=== PATIENT | male | born 1935 | race Caucasian/White ===

== ENCOUNTER 2017-11-03 11:01 | Day surgery (SDC) | payer MEDICARE ==
[~2017-11-03 11:01] MED LIST: ASPI81 PO; ATOR10 PO; LOSA25TA31 PO; PLAV75TA PO
[2017-11-03] MEDS ORDERED: LACTATED RINGER'S 1000 ML IV PRN (12:00)
[2017-11-03] MEDS ORDERED: METOPROLOL TARTRATE 25 MG TAB PO PRN (12:00)
[2017-11-03] MEDS ORDERED: SODIUM CHLORID 0.9% 500 ML IV PRN (12:00)
[2017-11-03] MEDS ORDERED: CHLORHEXIDINE GLUCONATE 2 % 1 PACK (2 CLOTHS) TOPICAL PRN (12:00)
[2017-11-03] MEDS ORDERED: POVIDONE IODINE 5% (ANTISEPSIS KIT) 4 APPLICATIONS EACH NARE PRN (12:00)
[2017-11-03] MEDS ORDERED: ASPI1TAB57 PO (12:13)
[2017-11-03] MEDS ORDERED: WARF-23 PO (12:13)
== END 2017-11-03 16:28 | disposition home or self-care (01) ==
LOC: HDOC 11:01 → HDIC 11:02 → HDOC 16:28
PROVIDERS: ATTEND Internal Medicine Interventional Cardiology
DX: R00.2 Palpitations (principal); I47.1 Supraventricular tachycardia; I35.0 Nonrheumatic aortic (valve) stenosis; I25.5 Ischemic cardiomyopathy
CPT/HCPCS: 93312; 93320; 93325

== ENCOUNTER 2017-11-28 10:50 | Day surgery (SDC) | payer MEDICARE ==
[~2017-11-28] VITALS: Ht 182.9 cm; Wt 101.4 kg
[~2017-11-28 10:50] MED LIST changes: +ASPI1TAB57 PO; -ASPI81 PO; -ATOR10 PO; -LOSA25TA31 PO; -PLAV75TA PO; +WARF-23 PO
[2017-11-28 11:22] VITALS: BP 156/85; PULSE 80; RESP 18; TEMP 97.8; O2SAT 90
[2017-11-28] MEDS ORDERED: ONDANSETRON HCL 4 MG/2 ML VIAL IV ONE (12:00)
[2017-11-28] MEDS ORDERED: ROCURONIUM INJ 50 MG/5 ML SYRINGE IV PUSH ONE (12:00)
[2017-11-28] MEDS ORDERED: LIDOCAINE HCL 1% PF 5 ML SYRINGE OTHER ONE (12:00)
[2017-11-28] MEDS ORDERED: PROPOFOL 200 MG/20 ML AMP IV ONE (12:00)
[2017-11-28] MEDS ORDERED: DEXAMETHASONE SOD PHOS 4 MG/ML VIAL IV ONE (12:00)
[2017-11-28] MEDS ORDERED: LORazepam 1 MG TAB SL SCH (12:00)
[2017-11-28] MEDS ORDERED: SODIUM CHLORID 0.9% 500 ML IV PRN (12:15)
[2017-11-28] MEDS ORDERED: METOPROLOL TARTRATE 25 MG TAB PO PRN (12:15)
[2017-11-28] MEDS ORDERED: POVIDONE IODINE 5% (ANTISEPSIS KIT) 4 APPLICATIONS EACH NARE PRN (12:15)
[2017-11-28] MEDS ORDERED: CHLORHEXIDINE GLUCONATE 2 % 1 PACK (2 CLOTHS) TOPICAL PRN (12:15)
[2017-11-28] MEDS ORDERED: LACTATED RINGER'S 1000 ML IV PRN (12:15)
[2017-11-28 12:24] LABS: INTERNATIONAL NORMALIZED RATIO 1.7 RATIO; PROTHROMBIN TIME - PATIENT 17.1 SEC (9.8-11.6)
[2017-11-28 12:39] LABS: ALKALINE PHOSPHATASE 69 U/L (45-117); TOTAL BILIRUBIN ADULT 0.6 MG/DL (0.2-1.0); TOTAL PROTEIN 7.3 GM/DL (6.4-8.2)
[2017-11-28 12:46] LABS: ALBUMIN 3.7 GM/DL (3.4-5.0); ALT (GPT) 28 U/L (12-78); AST (GOT) 27 U/L (15-37); BICARBONATE 27.3 MEQ/L (21.0-32.0); BLOOD UREA NITROGEN 26 MG/DL (7-18); CALCIUM 8.8 MG/DL (8.5-10.1); CHLORIDE 106 MEQ/L (98-107); CREATININE 1.13 MG/DL (0.60-1.30); GLOMERULAR FILTRATION RATE 62 ML/MIN (>89); GLUCOSE,RANDOM 132 MG/DL (74-106); SODIUM (NA) 139 MEQ/L (136-145)
[2017-11-28 14:04] LABS: AUTOMATED NEUTROPHIL # 6.4 TH/MM3 (1.8-7.7); BASOPHIL # 0.1 TH/MM3 (0-0.2); BASOPHIL % 1.1 % (0.0-2.0); EOSINOPHIL # 0.5 TH/MM3 (0-0.4); EOSINOPHIL % 4.4 % (0.0-4.0); HEMATOCRIT 40.4 % (39.0-51.0); LYMPH % 26.5 % (9.0-44.0); LYMPHOCYTE # 2.9 TH/MM3 (1.0-4.8); MEAN CELL VOLUME 92.8 FL (80.0-100.0); MEAN CORPUSCULAR HEMOGLOBIN 32.1 PG (27.0-34.0); MEAN CORPUSCULAR HGB CONC 34.6 % (32.0-36.0); MEAN PLATELET VOLUME 8.4 FL (7.0-11.0); MONO % 10.1 % (0.0-8.0); MONOCYTE # 1.1 TH/MM3 (0-0.9); NEUT % 57.9 % (16.0-70.0); PLATELET COUNT 213 TH/MM3 (150-450); RED BLOOD COUNT 4.36 MIL/MM3 (4.50-5.90); RED CELL DISTRIBUTION WIDTH 13.7 % (11.6-17.2)
[2017-11-28] MEDS: SODIUM CHLORID 0.9% 500 ML INJ 500 ML IV SCH (15:34)
[2017-11-28] MEDS ORDERED: HEPARIN-D5W 25,000 U/250 ML 250 ML ONE (15:36)
[2017-11-28] MEDS ORDERED: PROTAMINE SULFATE 50 MG/5 ML VIAL ONE (15:36)
[2017-11-28] MEDS ORDERED: HEPARIN SODIUM - IV 10,000 UNITS/10 ML VIAL ONE (15:37)
[2017-11-28] MEDS ORDERED: HEPARIN-NS/PF FLUSH BAG 2,000 ML IV FLUSH ONE (15:49)
[2017-11-28] MEDS ORDERED: LEVOFLOXACIN 500 MG PREMIX INJ 100 ML IV ONE (15:49)
--- NOTE | 2017-11-28 18:09 | PD.CARD ---
Atrial Fibrillation Cryo Study PROCEDURE DATE: Nov 28, 2017 PROCEDURE PERFORMED Electrophysiology study, CS cannulation, 3-D mapping, transeptal approach, right and left heart catheterization, cryoablation of atrial fibrillation, pulmonary vein isolation, posterior ablation, anterior ablation, repeat electrophysiology study on Isuprel infusion, intracardiac echo. Very complex case. INDICATIONS FOR PROCEDURE Mr. Mora is a 81-year-old male with atrial fibrillation, on multiple medications, on anticoagulation, referred for electrophysiology study and ablation. The risks, the nature and the benefit of the procedure are clearly stated to him. The risks include pneumothorax, cardiac perforation, stroke, need for open heart surgery and even . The patient understood and agreed to proceed. PROCEDURE As written informed consent was obtained prior to esophageal echo, the patient was kept on the table where he was prepped and draped in the usual sterile fashion. Conscious sedation was initiated and throughout the procedure by the anesthesiologist. Once sedation was verified, the right and left inguinal area was anesthetized with 2% Xylocaine. Using modified Seldinger technique, the left femoral vein was cannulated on three occasions and three guidewires were advanced over the wire, one 6, one 7, and one 10-Danish Hemaquet were advanced. Then the left femoral artery was done on one occasion, one guidewire was advanced over the wire. A 4-Danish Hemaquet was advanced. Then the right femoral vein was cannulated on one occasion and one guidewire was advanced over the wire. An 8-Danish Hemaquet was advanced. Then under fluoroscopic guidance through the 6 and 7-Danish Hemaquet, two 5- Danish Amy curved quadripolar electrophysiology catheters were advanced and positioned on the His as well as coronary sinus. The patient was in sinus rhythm. Basic interval was measured. They were all within normal limits. Then through the 10-Danish Hemaquet, a [employer] AcuNav intracardiac echo catheter was advanced and placed at the right atrium. Multiple views were obtained. There was no pericardial effusion. Pulmonary vein was seen. The atrial septum was visualized. Then the 8-Danish Hemaquet in the right femoral vein was exchanged for an Agilis transseptal sheath that was placed all the way to the superior vena cava. Through this sheath a [place] needle was advanced. Then the sheath, the dilator and the needle were pulled back progressively until foci engaged. Once the needle was advanced, RF was delivered for 2 seconds. I was able to cross into the left atrium. Once the needle was crossed, the dilator was advanced. Once the dilator was crossed, the sheath was advanced. Once the sheath crossed , the dilator and needle were removed. An intracardiac echo showed the sheath in good position. The patient already received 10,000 units of heparin. The goal is to get an ACT around 360 during the ablation. Through the sheath a 0.035 wire was advanced. I did exchange the Agilis sheath for a [employer] flex sheath. I decided to use a 28mm balloon. The balloon was advanced over the Acheive circumferential mapping catheter. Using EDGAR mapping, a 3 D mapping of the left atrium was obtained. First I did engage the left superior vein. The balloon was inflated, complete occlusion obtained. CryoEnergy was delivered for 3 and 3 minutes. Temperature reached -48. Then I did engage the left inferior vein, occlusion obtained. Venography showed complete occlusion and CryoEnergy was delivered for 3 and 2.5 minutes. Temperature was around -52. Then the right inferior was engaged, complete occlusion obtained. Temperature reach -48 for 3 and 3 minutes. Then the right superior was engaged. Before CryoEnergy of the right veins, the His catheter was placed at the left and the right subclavian. Phrenic nerve pacing was performed. There was diaphragmatic stimulation. That is going to be used for phrenic nerve monitoring during cryoablation. I did cryoablate the right superior vein. There was no loss of phrenic nerve movement, diaphragmatic movement. Phrenic nerve was intact. The temperature dropped to -46 for 3 and 3 minutes. At that point I removed the balloon. The circumferential catheter was advanced into the veins. Then the circumferential catheter was advanced into the veins. Pacing from the vein showed no conduction to the atrium. Pacing from the atrium showed no conduction to the veins. The patient at this point received Isuprel infusion for around 15 minutes at 20mcg. No tachyarrhythmia was induced, no conduction resumed. Post-Isuprel no conduction resumed either. At that point the procedure was complete. All catheters were removed, the transeptal sheath was exchanged for a 12-Danish Hemaquet. Intracardiac echo showed pericardial effusion, still good flow in the pulmonary vein. No incident reported. The patient tolerated the procedure. Blood loss minimal. 1. Electrocardiogram: At baseline the patient was in sinus. Postprocedure the patient in sinus. 2. Basic Interval: Base cycle length was around 760 milliseconds.AH at 124 and HV at 80ms. 3. Tachyarrhythmia: Atrial fibrillation was mapped and ablated. Ablation was successful. CONCLUSION Successful electrophysiology study, mapping and cryoablation of atrial fibrillation, pulmonary vein isolation, posterior and anterior wall ablation, repeat electrophysiology study on Isuprel infusion. COMMENT AND RECOMMENDATIONS The patient is going to be transferred to the telemetry unit, will be observed, and when stable can be discharged home. Libia Murcia MD Nov 28, 2017 18:09
[2017-11-28] MEDS ORDERED: BACITRACIN OINT 0.9 GM PKT TOP ONE (18:15)
[2017-11-28] MEDS ORDERED: SODIUM CHLOR 0.9% 250 ML INJ 250 ML IV PRN (18:15)
[2017-11-28] MEDS ORDERED: LIDOCAINE HCL 1% 50 ML VIAL INFIL PRN (18:15)
[2017-11-28] MEDS ORDERED: oxyCODONE/ACETAMINOPHEN 5 MG/325 MG TAB PO PRN ×2 (18:15)
[2017-11-28] MEDS ORDERED: LORazepam 2 MG/ML VIAL IV PUSH PRN (18:15)
[2017-11-28] MEDS ORDERED: ONDANSETRON HCL 4 MG/2 ML VIAL IV PUSH PRN (18:15)
[2017-11-28] MEDS ORDERED: ATROPINE SULFATE 1 MG/ML VIAL IV PUSH PRN (18:15)
--- NOTE | 2017-11-28 19:07 | CATHPROC ---
Patient Name: NEDA RIZO Study #: [id number] Initial MD: Libia Murcia Date of : 1935 Study Date: 11/28/2017 Cardiac Catheterization Report 11/28/2017 7:07:40 PM Financial #: [id number] 1 of 10 Patient Name: NEDA RIZO Study #: [id number] Initial MD: Libia Murcia Date of : 1935 Study Date: 11/28/2017 Entire Case Report Patient Information Patient Name NEDA RIZO Date of 1935 Age 81 years Financial # [id number] Gender M AlternateID Lab Number 2 Room Number DC07 Height (in) 72.0 Height (cm) 182.9 BSA 2.23 Weight (lbs) 223.1 Weight (kg) 101.4 Patient Address/Phone Number Home Address [facility] Home Phone Number [facility] [phone] Study Information Study Number Admission Scheduled Start Study Start [id number] Nov 28 2017 10:50AM 11/28/2017 Nov 28 2017 2:31PM [place] Service Electrophysiology Study Admit Source Facility Department Other [facility] [employer] Manager Physician and Clinical Staff Initial Libia Landon Maths Tutor Esvin Cardoso,RT(R) Maths Tutor Bertha Huerta,APPLICATION SUPPORT CONSULTANT Other Anesthesia, ASSET MANAGER Recorder Liliya Goodson RN Scrub Yuni ChavezRT(R) TECH2 11/28/2017 7:07:40 PM Financial #: [id number] 2 of 10 Patient Name: NEDA RIZO Study #: [id number] Initial MD: Libia Murcia Date of : 1935 Study Date: 11/28/2017 Procedures Performed Procedure Location (Site) Vessel Name CRYO Ablation LIPV LIPV CRYO Ablation LSPV LSPV CRYO Ablation RIPV RIPV CRYO Ablation RSPV RSPV ICE CATHETER INSERT RA Atruim Venogram LIPV LIPV Venogram LSPV LSPV Venogram RIPV RIPV Venogram RSPV RSPV Equipment Time Customs And Immigration Officer Description Size Mfg Part Number Used/Scraped COPILOT VALVE, BLEEDBACK [id number] 14:34 [employer] Used CONTROL *[id number] TRANSDUCER, TRUWAVE [id number] 14:34 CARLOS MERCHANT * Used W/STOCKCOCK *[id number] NEEDLE, TRANSSEPTAL NR 98 [id number] 14:34 [facility] Used C1 *[id number] COVER, TRANSDUCER CABLE 612-113 14:34 [employer] Used ACUNAV *0296418 14:34 CONMED LEADWIRE, DEFIBRILLATION PAD 2001M-PC Used SHEATH SET, FR12 CHECK-CLYDE RCF-12.0-38-J 14:34 COOK/PACER FR12 Used 13CM *[id number] 14:34 CORDIS/PACER SHEATH, FR10 ROHIT 11CM FR 10 Used *[id number] [id number] 14:34 MED[employer] PACK, CCL CUSTOM * Used *5302711 14:34 [employer] PACER LI, LIMB * 2530 *5442445 Used PSI-4F-11- 14:34 NavigatorMD MEDICAL SHEATH, FR4.5 PRELUDE 11CM FR 4.5 Used 035ACT [id number] 14:34 NavigatorMD MEDICAL WIRE, 3MMJ .035 180CM 180CM Used *4577064 [id number] 14:34 NAMIC MANIFOLD, 4 PORT * Used *8783717 [id number] 14:34 NAMIC TUBING, HIGH PRESSURE 48" 48" Used *5757540 47913979 14:34 NAMIC TUBING, HIGH PRESSURE 48" 48" Used *3348934 TUBING, PRESSURE INJECTION 53230575 14:34 NAMIC PACER 72" Used 72" *9903980 16:15 NYCOMED OMNIPAQUE, 300 MG, 150ML 150ML [id number] Used [id number] 14:34 MAYS MEDICAL BLANKET,WARM AIR CCL * Used *[id number] 11/28/2017 7:07:40 PM Financial #: [id number] Patient Name: NEDA RIZO Study #: [id number] Initial MD: Libia Murcia Date of : 1935 Study Date: 11/28/2017 569667 14:34 [facility] CATHETER, JSN, QUAD FR 5 Used *[id number] 537490 14:34 [facility] CATHETER, JSN, QUAD FR 5 Used *9710114 AD7981 14:34 [facility] [employer] ELECTRODE KIT, IMELDA X SURFACE * Used *6361480 128951 14:34 [facility] [employer] SHEATH, EPS, FR6 FAST CATH FR 6 Used *1441145 14:34 [facility] [employer] SHEATH, EPS, FR7 FAST CATH FR 7 [id number] Used 025147 14:34 [facility] [employer] SHEATH, EPS, FR8 FAST CATH FR 8 Used *3782858 SHEATH, FR8.5 STEERABLE SM 16:41 [facility] [employer] MEDICAL 71CM 403471 Used 71CM CATHETER, ACUNAV FR10 ICE [id number] 16:36 ANSLEY FR 10 Used (ANSLEY) *[id number] TER[employer]O MEDICAL 16:11 SHEATH, FR10 TURUMO FR [id number] [facility] PAD, ELECTROSURGICAL 14:34 * [id number] *5569058 Used SURGICAL GROUNDING (BLUE) BALLOON, ARCTIC FRONT 6ST765 16:57 [employer] Used ADVANCE 28MM *[id number] CATHETER, ACHEIVE MAPPING 2ACH20 16:50 [employer] 20MM Used 20MM *8556066 SHEATH, FR12 FLEXCATH 16:43 VIT[employer]RON [employer] FR 12 [id number] Used STEERABLE Equipment Model, Serial, Lot Number and Expiration Data Description Model Number Serial Number Lot Number Expiration Date CATHETER, ACHEIVE MAPPING [id number] 01-18-2019 20MM Insurance Information Insurance Payor Medicare Third Green Party Third Green Party Number MEDICARE A B MCRAB History: Allergies Allergy Reaction No Known Allergies History: Risk Factors Hypertension Dyslipidemia Previous NV Yes Yes Yes Prior PCI Yes Diabetes Yes 11/28/2017 7:07:40 PM Financial #: [id number] Patient Name: NEDA RIZO Study #: [id number] Initial MD: Libia Murcia Date of : 1935 Study Date: 8 Labs Hgb (g/dl) Hct (%) RBC (MIL/MM3) WBC (l/cumm) Platelets (thousands) 11.60-17.00 35.00-51.00 4.00-5.90 4.00-11.00 150.00-450.00 14.0 40 4.4 11 213 Glucose (mg/dl) BUN (mg/dl) Creatinine (mg/dl) BUN:Creatinine (1:x) 74.00-106.00 7.00-18.00 0.50-1.30 10.00-20.00 132 26 1.1 23.6 Na (meq/l) K (meq/l) 136.00-145.00 3.50-5.10 139 4.2 INR (PTT:PT) 0.90-1.10 1.7 Medication Medication Total Dose (Bolus/Oral) Medication Total Dosage/Unit 1% XYLOCAINE 40 mL HEPARIN 50927 units PROTAMINE 40 mg Medications (Bolus/Oral) Medication Time Given Dosage/Unit Administered By Reason 1% XYLOCAINE 11/28/2017 4:30:02 PM 20 mL Libia Murcia 20 mL 1% XYLOCAINE given in lab by Libia Murcia in Left Groin via Subcutaneous. 1% XYLOCAINE 11/28/2017 4:34:43 PM 20 mL Libia Murcia 20 mL 1% XYLOCAINE given in lab by Libia Murcia in Right Groin via Subcutaneous. HEPARIN 11/28/2017 4:40:52 PM 96328 units Anesthesia, ASSET MANAGER As per physicians v erbal order 29263 units HEPARIN given in lab by Anesthesia, ASSET MANAGER via Peripheral IV. Ordered by Libia Murcia. [place] son: As per physicians verbal order. PROTAMINE 11/28/2017 6:01:10 PM 40 mg Anesthesia, ASSET MANAGER As per physicians iam bal order 40 mg PROTAMINE given in lab by Anesthesia, ASSET MANAGER via Peripheral IV. Ordered by Libia Murcia. Reason: As per physicians verbal order. Medication (Drip) Medication Time Given Dosage/Unit Concentration/Unit Diluent (ml) Solution ISUPREL 11/28/2017 5:46:29 PM 20 mcg/min 1 mg 250 NaCl .9 20 mcg/min ISUPREL given in lab by Anesthesia, ASSET MANAGER via Peripheral IV. Pump/Drip Flow = 300 ml/hr usi ng NaCl .9 with a concentration of 1 mg in 250 ml. Ordered by Libia Murcia. Reason: As per physicians verbal order. 11/28/2017 7:07:40 PM Financial #: [id number] 5 of 10 Patient Name: NEDA RIZO Study #: [id number] Initial MD: Libia Murcia Date of : 1935 Study Date: 11/28/2017 Initial Case Assessment Cardiovascular HR Rhythm NIBP Chest Pain 80 sr 183/100 0 Edema Present Skin color Skin None Normal Warm Circulatory - Right Pulses Dorsalis Pedis 2 Scale (0,1,2,3,4,d) Circulatory - Left Pulses Dorsalis Pedis 2 Scale (0,1,2,3,4,d) Circulatory - Lower Extremities Color Lower Right Color Lower Left Normal Normal Neurological State Oriented to time-place- Alert Moves all extremities person Respiration - General Respiration Rate SpO2 (%) (B/min) 20 99 11/28/2017 7:07:40 PM Financial #: [id number] 6 of 10 Patient Name: NEDA RIZO Study #: [id number] Initial MD: Libia Murcia Date of : 1935 Study Date: 11/28/2017 Final Case Assessment Cardiovascular HR Rhythm NIBP Chest Pain 68 sr 135/70 0 Edema Present Skin color Skin None Normal Warm Dry Circulatory - Right Pulses Dorsalis Pedis Femoral 2 2 Scale (0,1,2,3,4,d) Circulatory - Left Pulses Dorsalis Pedis Femoral 2 2 Scale (0,1,2,3,4,d) Neurological State Oriented to time-place- Alert Moves all extremities person Respiration - General Respiration Rate SpO2 (%) (B/min) 18 98 Chronological Log Time Study Chronological Log 15:34:28 Patient arrived via Bed. 15:34:29 Patient Name, D.O.B, / Armband Verified By R.N. 15:34:30 Consent signed by the physician and the patient and verified by the [employer]essen Store Manager staff. 15:34:30 Pre-op and post- op instructions given; patient acknowledges understanding of instructions. 15:34:31 Verbal Stimulation=2 Physical Stimulation=2 Airway=2 Respiration=2 TOTAL=8. (0=absent, 1=li mited, 2=present) 15:34:32 Anesthesia at bedside. Assumes care of patient. Jay 15:34:37 Patient has been NPO for More than 6Hrs. 15:34:38 Skin Breakdown- none per pt 15:34:51 Patient Warmer Placed on the Table. 15:34:52 Disposable Defibrillator Pads Placed On Patient. 15:34:52 Ramandeep Prominences Protected 15:34:54 A # 20 IV was noted in the Hand (left). Grade = 0 0.9ns kvo 11/28/2017 7:07:40 PM Financial #: [id number] 7 of 10 Patient Name: NEDA RIZO Study #: [id number] Initial MD: Libia Murcia Date of : 1935 Study Date: 11/28/2017 15:34:55 A # 20 IV was noted in the Antecubital (right). Grade = 0 0.9ns kvo 15:35:43 History and physical on the chart. Assessment: Initial Case, HR=80 BPM, Rhythm=sr, YLYM=491/100 mmhg, Chest Pain=0, Edema=None, Co se=Normal, Skin = Warm Right Pulses: Roque Ped=2 Left Pulses: Roque Ped=2 15:52:18 Lower Right Extremities: Color=Normal Lower Left Extremities: Color=Normal Neurological: State=Alert, Ox3, PARKS Respiration: Resp=20 B/min, SpO2=99 % 15:52:58 Table restraints applied according to hospital policy 15:55:27 Anesthesiologist present for intubation. 14 fr logan inserted w/o difficulty. Clear yellow urine obtained. 15:55:32 Reference ECG taken 16:07:25 Bilateral groins prepped with 2% chlorhexidine, and draped after a 3 minute waiting time. 16:12:48 Pressure channel 2 zeroed. 16:15:17 MD paged 16:18:17 MD responded 16:22:30 MD arrived. Time Out. Correct patient, procedure, procedure equipment, site and side verified with physicia n present. Time 16:26:00 concurred by MD, individual staff and ASSET MANAGER. Time Out #2 - Consents verified, patient in correct position, all results are labled and displa yed, safety precautions 16:26:28 taken, antibiotics administered. Time out concurred by MD, individual staff and ASSET MANAGER in procedu re 16:26:49 Case Start 16:26:52 Hank in progress. 16:29:38 Hank complete. 16:30:02 20 mL 1% XYLOCAINE given in lab by Libia Murcia in Left Groin via Subcutaneous. 16:30:41 Vascular access was obtained in the Fem Vein (left). 16:30:48 Vascular access was obtained in the Fem Vein (left). 16:30:56 Vascular access was obtained in the Fem Vein (left). 16:31:02 Vascular access was obtained in the Fem Art (left). A SHEATH, FR4.5 PRELUDE 11CM FR 4.5 was advanced into the Fem Art (left) using the Modified Florina timbo technique. 16:31:13 0.9ns pressure bag connected. 16:32:29 A SHEATH, EPS, FR6 FAST CATH FR 6 was advanced into the Fem Vein (left) using the Modified Seldinger technique. 16:32:40 A SHEATH, EPS, FR7 FAST CATH FR 7 was advanced into the Fem Vein (left) using the Modified Seldinger technique. 16:32:43 A SHEATH, FR10 ROHIT 11CM FR 10 was advanced into the Fem Vein (left) using the Modified S eldinger technique. 16:34:43 20 mL 1% XYLOCAINE given in lab by Libia Murcia in Right Groin via Subcutaneous. 16:34:50 Vascular access was obtained in the Fem Vein (right). 16:34:56 A SHEATH, EPS, FR8 FAST CATH FR 8 was advanced into the Fem Art (right) using the Modified Seldinger technique. 16:36:13 CATHETER, ACUNAV FR10 ICE (ANSLEY) FR 10 Was Postioned. A CATHETER, JSN, QUAD FR 5 was advanced vis Fem Vein (left) and placed in the HIS. Placement wa s visually 16:38:39 confirmed under fluoroscopy. 11/28/2017 7:07:40 PM Financial #: [id number] Patient Name: NEDA RIZO Study #: [id number] Initial MD: Libia Murcia Date of : 1935 Study Date: 11/28/2017 A CATHETER, JSN, QUAD FR 5 was advanced vis Fem Vein (left) and placed in the CS. Placement was visually 16:38:56 confirmed under fluoroscopy. A SHEATH, FR8.5 STEERABLE SM 71CM 71CM was exchanged in the Fem Art (right). This was necessary in order for 16:39:57 catheter support. 16:40:18 [place] [address] units HEPARIN given in lab by Anesthesia, ASSET MANAGER via Peripheral IV. Ordered by Nancy Murcia Reason: As per 16:40:52 physicians verbal order. 16:41:18 A eps was advanced to the right atrium and passed through the septal wall to the left atriu m. 16:41:21 [place] out A SHEATH, FR12 FLEXCATH STEERABLE FR 12 was exchanged in the Fem Art (right). This was necessar y in order for 16:42:55 catheter support. A CATHETER, ACHEIVE MAPPING 20MM 20MM was advanced vis Fem Vein (right) and placed in the LA. P lacement was 16:44:21 visually confirmed under fluoroscopy. 16:46:18 Activated Clotting Time Drawn 16:53:48 ACT (Normal Range 90-180) = 361 16:56:00 A BALLOON, ARCTIC FRONT ADVANCE 28MM was inserted over wire via the LSPV. 16:56:17 Cryo Ablation of the LSPV with a BALLOON, ARCTIC FRONT ADVANCE 28MM. 1st 16:59:10 The LSPV was manually injected with 5 cc's of contrast. OMNIPAQUE, 300 MG, 150ML 150ML used . 17:00:39 Cryo Ablation of the LSPV with a BALLOON, ARCTIC FRONT ADVANCE 28MM. 2nd 17:04:53 Cryo Ablation of the LIPV with a BALLOON, ARCTIC FRONT ADVANCE 28MM. 1st 17:05:11 The LIPV was manually injected with 5 cc's of contrast. OMNIPAQUE, 300 MG, 150ML 150ML used . 17:09:46 Cryo Ablation of the LIPV with a BALLOON, ARCTIC FRONT ADVANCE 28MM. 2nd 17:10:14 The LIPV was manually injected with 5 cc's of contrast. OMNIPAQUE, 300 MG, 150ML 150ML used . 17:16:00 The RIPV was manually injected with 5 cc's of contrast. OMNIPAQUE, 300 MG, 150ML 150ML used . 17:16:19 Cryo Ablation of the RIPV with a BALLOON, ARCTIC FRONT ADVANCE 28MM. 1st 17:16:43 EPS in progress. 17:19:45 Activated Clotting Time Drawn 17:21:12 The RIPV was manually injected with 5 cc's of contrast. OMNIPAQUE, 300 MG, 150ML 150ML used . 17:21:23 Cryo Ablation of the RIPV with a BALLOON, ARCTIC FRONT ADVANCE 28MM. 1st 17:23:51 ACT (Normal Range 90-180) = 357 17:24:40 Cryo Ablation of the RIPV with a BALLOON, ARCTIC FRONT ADVANCE 28MM. 2nd 17:28:56 The RSPV was manually injected with 5 cc's of contrast. OMNIPAQUE, 300 MG, 150ML 150ML used . 17:29:19 Cryo Ablation of the RSPV with a BALLOON, ARCTIC FRONT ADVANCE 28MM. 17:37:08 Cryo Ablation of the RSPV with a BALLOON, ARCTIC FRONT ADVANCE 28MM. 2nd 20 mcg/min ISUPREL given in lab by Anesthesia, ASSET MANAGER via Peripheral IV. Pump/Drip Flow = 300 ml/ hr using NaCl .9 17:46:29 with a concentration of 1 mg in 250 ml. Ordered by Libia Murcia. Reason: As per physicians iam bal order. 17:58:19 Isuprel off 17:58:30 All catheter(s) removed without difficulty A SHEATH SET, FR12 CHECK-CLYDE 13CM FR12 was exchanged in the Fem Vein (right). This was necessar y in order to 17:59:46 minimize site leakage. 18:00:03 Heparin off 11/28/2017 7:07:40 PM Financial #: [id number] Patient Name: NEDA RIZO Study #: [id number] Initial MD: Libia Murcia Date of : 1935 Study Date: 11/28/2017 18:00:46 Case End 40 mg PROTAMINE given in lab by Anesthesia, ASSET MANAGER via Peripheral IV. Ordered by Libia Murcia. Reason: As per 18:01:10 physicians verbal order. 18:05:19 Patient extubated without issue 18:10:17 Activated Clotting Time Drawn 18:12:55 Defibrillator and ground pads removed. Skin intact. 18:15:27 ACT (Normal Range 90-180) = 137 18:16:25 12Fr venous sheath pulled at 16:16 by Jaron DUENAS, and 4fr arterey pulled by Sena LIRA 18:27:47 6fr, 7fr, 10fr venous sheaths pulled by Bertha LIRA Assessment: Final Case, HR=68 BPM, Rhythm=sr, EMXG=541/70 mmhg, Chest Pain=0, Edema=None, [place] r=Normal, Skin = Warm, Dry Right Pulses: Roque Ped=2, Femoral=2 18:34:44 Left Pulses: Roque Ped=2, Femoral=2 Neurological: State=Alert, Ox3, PARKS Respiration: Resp=18 B/min, SpO2=98 % 18:35:43 No case complications noted. 18:36:38 PACU called. Spoke to desk cler. 18:37:08 Bedside Report will be given. 18:39:43 Sterile dressing applied to r groin site 18:45:58 Sterile dressing applied to left groin site 18:50:19 Patient moved to stretcher. sites wnl End Study - Contrast Media Used In Study Contrast Total Opened (mL) Total Used (mL) Total Wasted (mL) Omnipaque 150 25 125 End Study - Maximum Contrast Load Max Contrast Load (mL) 461.0 End Study - Radiation Exposure Fluoro Time (minutes) 10.5 End Study - Patient Disposition Complications Transferred To Interventional Outcome No Telemetry Bed successful 11/28/2017 7:07:40 PM Financial #: [id number]
[2017-11-28] MEDS ORDERED: DO NOT ADM ANY ANTICOAGULANT DRUGS PRN (19:10)
[2017-11-28 21:53] VITALS: BP 133/68; PULSE 71; RESP 17; TEMP 98; O2SAT 96
[2017-11-28 22:06] VITALS: PULSE 70
[2017-11-28] MEDS: APIXABAN 5 MG TABLET PO SCH (22:10)
[2017-11-28 23:00] VITALS: BP 123/63; PULSE 69; PULSE 77; RESP 17; TEMP 97.6; O2SAT 96
[2017-11-29] VITALS (11 sets, daily range): BP systolic 114–147; BP diastolic 62–65; PULSE 53–70; RESP 17–19; TEMP 97.6–98.2; O2SAT 96–97
[2017-11-29] MEDS: SODIUM CHLORID 0.9% 500 ML INJ 500 ML IV SCH (03:28)
[2017-11-29 04:39] LABS: HEMATOCRIT 37.4 % (39.0-51.0); HEMOGLOBIN 13.2 GM/DL (13.0-17.0); MEAN CELL VOLUME 92.8 FL (80.0-100.0); MEAN CORPUSCULAR HEMOGLOBIN 32.7 PG (27.0-34.0); MEAN CORPUSCULAR HGB CONC 35.2 % (32.0-36.0); MEAN PLATELET VOLUME 8.3 FL (7.0-11.0); PLATELET COUNT 179 TH/MM3 (150-450); RED BLOOD COUNT 4.03 MIL/MM3 (4.50-5.90); RED CELL DISTRIBUTION WIDTH 13.5 % (11.6-17.2)
[2017-11-29 04:53] LABS: INTERNATIONAL NORMALIZED RATIO 1.7 RATIO; PROTHROMBIN TIME - PATIENT 17.1 SEC (9.8-11.6)
[2017-11-29 05:03] LABS: BICARBONATE 24.3 MEQ/L (21.0-32.0); CALCIUM 8.2 MG/DL (8.5-10.1); CREATININE 0.94 MG/DL (0.60-1.30)
--- NOTE | 2017-11-29 08:02 | EKG ---
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
--- NOTE | 2017-11-29 08:18 | PD.CARD.PN ---
Subjective Subjective Remarks Feels okay Objective Medications Current Medications Medications (Trade) Dose Ordered Sig/Anjali Route Start Time Stop Time Status Last Admin Sodium Chloride 500 ml @ 30 mls/hr [id number] IV 11/28/17 12:00 11/28/17 15:34 (Ativan) 1 mg MANAGER MASS SL 11/28/17 12:00 12/01/17 11:59 Lactated Ringer's 1,000 ml @ 30 mls/hr Q24H PRN IV 11/28/17 12:15 12/01/17 12:14 Sodium Chloride 500 ml @ 30 mls/hr [id number] PRN IV 11/28/17 12:15 12/01/17 12:14 (Lopressor) 25 mg MANAGER MASS PRN PO 11/28/17 12:15 12/01/17 12:14 (Betadine 5% Antisepsis Kit) 1 applic MANAGER MASS PRN EACH NARE 11/28/17 12:15 12/01/17 12:14 (Chlorhexidine 2% Cloth) 3 pack MANAGER MASS PRN TOPICAL 11/28/17 12:15 12/01/17 12:14 (Percocet 5-325 Mg) 1 tab Q4H PRN PO 11/28/17 18:15 (Percocet 5-325 Mg) 2 tab Q4H PRN PO 11/28/17 18:15 (Ativan Inj) 0.5 mg UNSCH PRN IV PUSH 11/28/17 18:15 11/29/17 18:14 (Atropine Inj) 0.5 mg UNSCH PRN IV PUSH 11/28/17 18:15 Sodium Chloride 250 ml @ 500 mls/hr ONCE PRN IV 11/28/17 18:15 11/29/17 18:14 (Zofran Inj) 4 mg Q4H PRN IV PUSH 11/28/17 18:15 (Xylocaine 1% Inj (50 ml)) 10 ml UNSCH PRN INFIL 11/28/17 18:15 11/29/17 18:14 (Eliquis) 5 mg BID PO 11/28/17 21:00 11/28/17 22:10 Miscellaneous Information ALL NURSING DEPARTME... UNSCH PRN .XX 11/28/17 19:10 11/29/17 19:09 Vital Signs / I&O Vital Signs Date Time Temp Pulse Resp B/P (MAP) Pulse Ox O2 Delivery O2 Flow Rate FiO2 11/29/17 07:43 98.2 70 19 147/65 (92) 97 11/29/17 06:01 53 11/29/17 05:00 56 11/29/17 04:00 63 11/29/17 03:00 97.6 70 17 114/62 (79) 96 11/29/17 03:00 59 11/29/17 02:00 58 11/29/17 01:00 60 11/29/17 00:00 60 11/28/17 23:00 69 11/28/17 23:00 97.6 77 17 123/63 (83) 96 11/28/17 22:06 70 11/28/17 21:53 98.0 71 17 133/68 (89) 96 11/28/17 21:19 97.6 66 25 120/68 (85) 97 Room Air 11/28/17 21:15 64 13 120/62 (81) 96 Room Air 11/28/17 21:00 65 12 122/66 (84) 98 Room Air 11/28/17 20:45 64 12 123/64 (83) 96 Room Air 11/28/17 20:30 64 13 125/67 (86) 96 Room Air 11/28/17 20:15 63 16 126/66 (86) 98 Room Air 11/28/17 20:00 65 16 132/67 (88) 97 Room Air 11/28/17 19:45 68 25 137/75 (95) 98 Room Air 11/28/17 19:30 66 16 138/74 (95) 98 Room Air 11/28/17 19:15 68 15 149/81 (103) 98 Room Air 11/28/17 19:11 97.6 70 15 139/75 (96) 99 Room Air 11/28/17 11:22 97.8 80 18 156/85 (108) 90 I/O 11/28/17 11/28/17 11/28/17 11/29/17 11/29/17 11/29/17 07:00 15:00 23:00 07:00 15:00 23:00 Intake Total 100 ml 720 ml 240 ml Output Total 250 ml 500 ml Balance -150 ml 220 ml 240 ml Intake Oral 100 ml 720 ml 240 ml Output Urine Total 250 ml 500 ml Physical Exam GENERAL: Well-nourished, well-developed patient. SKIN: Warm and dry. Groin sites soft without bruising or bleeding. HEAD: Normocephalic. EYES: No scleral icterus. No injection or drainage. NECK: Supple, trachea midline. No JVD or lymphadenopathy. CARDIOVASCULAR: Regular rate and rhythm without murmurs, gallops, or rubs. RESPIRATORY: Breath sounds equal bilaterally. No accessory muscle use. GASTROINTESTINAL: Abdomen soft, non-tender, nondistended. EXTREMITIES: No cyanosis, or edema. NEUROLOGICAL: Awake, alert, and oriented x 3. Non-focal. Laboratory Laboratory Tests Test 11/28/17 11:15 11/29/17 03:46 White Blood Count 11.0 TH/MM3 10.0 TH/MM3 Red Blood Count 4.36 MIL/MM3 4.03 MIL/MM3 Hemoglobin 14.0 GM/DL 13.2 GM/DL Hematocrit 40.4 % 37.4 % Mean Corpuscular Volume 92.8 FL 92.8 FL Mean Corpuscular Hemoglobin 32.1 PG 32.7 PG Mean Corpuscular Hemoglobin Concent 34.6 % 35.2 % Red Cell Distribution Width 13.7 % 13.5 % Platelet Count 213 TH/MM3 179 TH/MM3 Mean Platelet Volume 8.4 FL 8.3 FL Neutrophils (%) (Auto) 57.9 % Lymphocytes (%) (Auto) 26.5 % Monocytes (%) (Auto) 10.1 % Eosinophils (%) (Auto) 4.4 % Basophils (%) (Auto) 1.1 % Neutrophils # (Auto) 6.4 TH/MM3 Lymphocytes # (Auto) 2.9 TH/MM3 Monocytes # (Auto) 1.1 TH/MM3 Eosinophils # (Auto) 0.5 TH/MM3 Basophils # (Auto) 0.1 TH/MM3 CBC Comment DIFF FINAL Differential Comment Prothrombin Time 17.1 SEC 17.1 SEC Prothromb Time International Ratio 1.7 RATIO 1.7 RATIO Blood Urea Nitrogen 26 MG/DL 24 MG/DL Creatinine 1.13 MG/DL 0.94 MG/DL Random Glucose 132 MG/DL 207 MG/DL Total Protein 7.3 GM/DL Albumin 3.7 GM/DL Calcium Level 8.8 MG/DL 8.2 MG/DL Alkaline Phosphatase 69 U/L Aspartate Amino Transf (AST/SGOT) 27 U/L Alanine Aminotransferase (ALT/SGPT) 28 U/L Total Bilirubin 0.6 MG/DL Sodium Level 139 MEQ/L 138 MEQ/L Potassium Level 4.2 MEQ/L 4.5 MEQ/L Chloride Level 106 MEQ/L 106 MEQ/L Carbon Dioxide Level 27.3 MEQ/L 24.3 MEQ/L Anion Gap 6 MEQ/L 8 MEQ/L Estimat Glomerular Filtration Rate 62 ML/MIN 77 ML/MIN Activated Partial Thromboplast Time 31.5 SEC Assessment and Plan Problem List: (1) Atrial fibrillation ICD Codes: I48.91 - Unspecified atrial fibrillation Plan: Sinus rhythm on telemetry. (2) S/P ablation of atrial fibrillation ICD Codes: Z98.890 - Other specified postprocedural states; Z86.79 - Personal history of other diseases of the circulatory system Plan: Stable for discharge home. Follow-up with Dr. Murcia in 3 weeks per my discussion with him. Adriana Villeda Nov 29, 2017 08:18
[2017-11-29] MEDS: APIXABAN 5 MG TABLET PO SCH ×2 (08:59→09:08)
--- NOTE | 2017-11-29 15:27 | EKG ---
Date Performed: 11/29/2017 Time Performed: 04:05:42 PTAGE: 81 years EKG: Sinus rhythm with 1st degree A-V block Severe right axis deviation Right bundle branch block Extensive infarct - age undetermined Abnormal ECG NO PREVIOUS TRACING DOCTOR: Keyon Crespo Interpretating Date/Time 11/29/2017 15:26:58
--- NOTE | 2017-11-29 16:04 | EKG ---
Date Performed: 11/28/2017 Time Performed: 11:47:06 PTAGE: 81 years EKG: Sinus rhythm with 1st degree A-V block Severe right axis deviation Right bundle branch block Extensive infarct - age undetermined Abnormal ECG PREVIOUS TRACING : 06/03/2016 06.15 DOCTOR: Keyon Crespo Interpretating Date/Time 11/29/2017 16:02:56
--- NOTE | 2017-11-30 10:56 | ECHRPT ---
Indication: CONCLUSIONS Adequate left ventricular systolic function. EF 45-50% Mild left atrial enlargement No clot seen in left atrial nor left atrial appendage Milr mitral regurgitation No gross valvular abnormality BP: / HR: Rhythm: Technical Quality: Medications Sedation was administered by anesthesiology Complications none Proc. Components FINDINGS LEFT VENTRICLE Adequate left ventricular wall contractility RIGHT VENTRICLE Normal right ventricular size and systolic function. LEFT ATRIUM The left atrial size is mildly dilated. ATRIAL APPENDAGES Normal left atrial appendage size with no evidence of thrombus formation. ATRIAL SEPTUM Normal atrial septal thickness without atrial level shunting by limited color doppler interrogation. No atrial level shunt is demonstrated by color flow Doppler interrogation. No atrial level shunt is observed with agitated saline contrast administration. AORTA The aortic root and proximal ascending aorta are normal in size on limited imaging. MITRAL VALVE [id number] mitral valve regurgitation. AORTIC VALVE Trileaflet aortic valve. No aortic valve stenosis or regurgitation. PERICADIUM No pericardial effusion. Libia Murcia MD (Electronically Signed) Final Date:30 November 2017 10:55
== END 2017-11-29 10:30 | disposition home or self-care (01) ==
LOC: HCAT 10:50 → HDIC 10:50 → HCPC 21:36 → HCAT 11-29 10:30
PROVIDERS: ATTEND Internal Medicine Interventional Cardiology
DX: I48.91 Unspecified atrial fibrillation (principal); I44.0 Atrioventricular block, first degree; I44.4 Left anterior fascicular block; I47.1 Supraventricular tachycardia; I25.2 Old myocardial infarction; I25.10 Atherosclerotic heart disease of native coronary artery without angina pectoris; I25.5 Ischemic cardiomyopathy; E78.5 Hyperlipidemia, unspecified
CPT/HCPCS: 00537; 80048; 80053; 82948; 85002; 85025; 85027; 85610; 85730; 86850; 86900; 86901; 93005; 93312; 93320; 93325; 93613; 93623; 93656; 93662; C1730; C1731; C1732; C1733; C1759; C1766; J1100; J1644; J1956; J2405; J2720; J3010; J7040